=== PATIENT | male | born 1965 | race African-American/Black ===

== ENCOUNTER 2020-11-09 03:48 | Emergency (ER) | payer SELFPAY ==
[2020-11-09 03:59] VITALS: BP 143/90
[2020-11-09] MEDS ORDERED: IBUPROFEN 600 MG TAB PO ONE (04:00)
[2020-11-09] MEDS ORDERED: ONDANSETRON 4 MG ODT TAB PO ONE (04:00)
[2020-11-09] MEDS ORDERED: HYDROcodone/ACETAMINOPHEN 5-325 MG TAB PO ONE (04:00)
--- NOTE | 2020-11-09 04:45 | XRay Report ---
LUMBAR SPINE 3 VIEWS INDICATION / CLINICAL INFORMATION: pain; LOWER BACK PAIN X 2 DAYS. COMPARISON: None available. FINDINGS: VERTEBRAE: No fracture. No significant malalignment. 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 FACET JOINTS:Moderate facet degenerative disease L5-S1 ADDITIONAL FINDINGS: None. IMPRESSION: 1. No significant abnormality. Signer Name: Jean Pollock MD Signed: 11/09/2020 4:41 AM Workstation Name: [id number]
--- NOTE | 2020-11-09 04:48 | Emergency Department Report ---
ED Back Pain/Injury HPI - General Chief Complaint: Back Pain/Injury Stated Complaint: BACK PAIN/PAINFUL URINATION Source: patient Limitations: Language Barrier - History of Present Illness Initial Comments: Patient is a 55-year-old [place] male with no past medical history presents to the ED with complaint of acute onset persistent severe low back pain for the last 24 hours after heavy lifting at work 24 hours ago. Patient states that the pain is worse with any movement. Patient states that his job entails heavy lifting and that 24 hours ago he may have carried more weight at work. Patient denies fall, traumatic injury, nausea and vomiting, dysuria, urine frequency and urgency, hematuria, testicular pain, numbness and tingling or weakness of lower extremities bilaterally or fever and chills or abdominal pain. MD Complaint: back pain (lower back pain), back injury (Heavy lifting injury) -: Sudden, hour(s) (24) Similar Symptoms Previously: No Place: work Radiation: none Severity scale (0 -10): 7 Quality: sharp, aching Consistency: constant Improves With: none Worsens With: none Context: while lifting, turning/twisting Associated Symptoms: denies other symptoms. denies: confusion, weakness, chest pain, numbness, difficulty walking, cough, difficulty urinating, diaphoresis, incontinence, fever/chills, constipation, headaches, abdominal pain, loss of appetite, malaise, nausea/vomiting, rash, seizure, shortness of breath, syncope - Related Data Previous Rx's Medication Instructions Recorded Last Taken Type Baclofen 20 mg PO Q12H PRN #20 tablet 11/09/20 Unknown Rx Naproxen 500 mg PO Q12H PRN #30 tablet 11/09/20 Unknown Rx traMADoL [Ultram] 50 mg PO Q6HR PRN #10 tablet 11/09/20 Unknown Rx Allergies Allergy/AdvReac Type Severity Reaction Status Date / Time No Known Allergies Allergy Unverified 11/09/20 03:57 ED Review of Systems ROS: Stated complaint: BACK PAIN/PAINFUL URINATION Other details as noted in HPI Constitutional: denies: chills, fever Eyes: denies: eye pain, eye discharge, vision change ENT: denies: ear pain, throat pain Respiratory: denies: cough, shortness of breath, wheezing Cardiovascular: denies: chest pain, palpitations Endocrine: no symptoms reported Gastrointestinal: denies: abdominal pain, nausea, vomiting, diarrhea Genitourinary: denies: urgency, dysuria Musculoskeletal: back pain (Low back pain), arthralgia, myalgia. denies: joint swelling Skin: denies: rash, lesions Neurological: denies: headache, weakness, paresthesias Psychiatric: denies: anxiety, depression Hematological/Lymphatic: denies: easy bleeding, easy bruising ED Past Medical Hx - Past Medical History Previous Medical History?: No - Surgical History Past Surgical History?: No - Medications Home Medications: Home Medications Medication Instructions Recorded Confirmed Last Taken Type Baclofen 20 mg PO Q12H PRN #20 tablet 11/09/20 Unknown Rx Naproxen 500 mg PO Q12H PRN #30 tablet 11/09/20 Unknown Rx traMADoL [Ultram] 50 mg PO Q6HR PRN #10 tablet 11/09/20 Unknown Rx ED Physical Exam - General Limitations: Language Barrier General appearance: alert, in no apparent distress - Head Head exam: Present: atraumatic, normocephalic, normal inspection - Eye Eye exam: Present: normal appearance, PERRL, EOMI Pupils: Present: normal accommodation - ENT ENT exam: Present: normal exam, normal orophraynx, mucous membranes moist, TM's normal bilaterally, normal external ear exam - Neck Neck exam: Present: normal inspection, full ROM - Respiratory Respiratory exam: Present: normal lung sounds bilaterally. Absent: respiratory distress, wheezes, rales, rhonchi, chest wall tenderness, accessory muscle use, decreased breath sounds, prolonged expiratory - Cardiovascular Cardiovascular Exam: Present: regular rate, normal rhythm, normal heart sounds. Absent: systolic murmur, diastolic murmur, rubs, gallop - GI/Abdominal GI/Abdominal exam: Present: soft, normal bowel sounds. Absent: tenderness, guarding, rebound, hyperactive bowel sounds, hypoactive bowel sounds, mass - Extremities Exam Extremities exam: Present: normal inspection, full ROM, normal capillary refill - Back Exam Back exam: Present: normal inspection, full ROM, tenderness (Palpable severe lumbosacral paraspinal musculoskeletal tenderness), muscle spasm, paraspinal tenderness. Absent: CVA tenderness (R), CVA tenderness (L), vertebral tenderness, rash noted - Neurological Exam Neurological exam: Present: alert, oriented X3, CN II-XII intact, normal gait, reflexes normal - Psychiatric Psychiatric exam: Present: normal affect, normal mood - Skin Skin exam: Present: warm, dry, intact, normal color. Absent: rash ED Course Vital Signs 11/09/20 03:58 Temperature 98.4 F Pulse Rate 69 Respiratory 16 Rate Blood Pressure 143/90 [Right] O2 Sat by Pulse 97 Oximetry ED Medical Decision Making - Radiology Data Radiology results: report reviewed, image reviewed [facility] [address] [place] [address] XRay Report Signed Patient: CARRIE WILSON MR#: [id number] 85 : 1965 Acct:[id number] Age/Sex: 55 / M ADM Date: 11/09/20 Loc: ED Attending Dr: Ordering Physician: MURTAZA VIEYRA MD Date of Service: 11/09/20 Procedure(s): XR spine lumbosacral 2-3V Accession Number(s): [id number] cc: MURTAZA VIEYRA MD Fluoro Time In Minutes: LUMBAR SPINE 3 VIEWS INDICATION / CLINICAL INFORMATION: pain; LOWER BACK PAIN X 2 DAYS. COMPARISON: None available. FINDINGS: VERTEBRAE: No fracture. No significant malalignment. 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 FACET JOINTS:Moderate facet degenerative disease L5-S1 ADDITIONAL FINDINGS: None. IMPRESSION: 1. No significant abnormality. Signer Name: Jean Pollock MD Signed: 11/09/2020 4:41 AM Workstation Name: [id number] Transcribed By: TL Dictated By: Jean Pollock MD Electronically Authenticated By: Jean Pollock MD Signed Date/Time: 11/09/20440 DD/ 9 TD/TT: - Medical Decision Making This is a 55-year-old [place] male with no past medical history presents to the ED with complaint of acute onset persistent severe low back pain for the last 24 hours after heavy lifting at work 24 hours ago. Patient states that the pain is worse with any movement. Patient states that his job entails heavy lifting and that 24 hours ago he may have carried more weight at work. In the ED, patient is alert and oriented x3 and is not in distress but appears to be in pain. Patient was treated for pain in the ED and L-spine x-ray showed no acute fractures or subluxations of the lumbar spine. On reevaluation, patient's pain is well controlled medications. Patient was discharged home on pain medications muscle relaxants and was advised to follow-up with his primary care physician in 7 to 10 days for reevaluation. Patient was advised return to the ED immediately if symptoms get worse. - Differential Diagnosis Muscle spasm; muscle strain; back injury; Critical care attestation.: If time is entered above; I have spent that time in minutes in the direct care of this critically ill patient, excluding procedure time. ED Disposition Clinical Impression: Spasm of muscle of lower back, Strain of muscle, fascia and tendon of lower back, initial encounter Disposition: HOME / SELF CARE / HOMELESS Is pt being admited?: No Does the pt Need Aspirin: No Condition: Stable Instructions: Muscle Cramps and Spasms, [id number], Muscle Strain, [id number], Low Back Sprain or Strain Rehab-SportsMed, Lumbosacral Strain Additional Instructions: The lumbar spine x-ray shows no acute fractures or subluxations of your low back. Your symptoms are likely due to muscle spasm or muscle strain following the heavy lifting at work. Therefore take pain medication as needed, drink plenty of fluids and follow-up with your primary care physician in 7 to 10 days for reevaluation or return to the ED immediately if symptoms get worse. Prescriptions: Baclofen 20 mg PO Q12H PRN #20 tablet PRN Reason: Muscle Spasm Naproxen 500 mg PO Q12H PRN #30 tablet PRN Reason: Pain , Severe (7-10) traMADoL [Ultram] 50 mg PO Q6HR PRN #10 tablet PRN Reason: Pain Referrals: [facility] [Provider Group] - 7-10 days Forms: Work/School Release Form(ED) Time of Disposition: 04:52 Print Language: NEPALI
== END 2020-11-09 05:18 | disposition home or self-care (01) ==
LOC: ED 03:48
DX: S39.012A Strain of muscle, fascia and tendon of lower back, initial encounter (principal); M62.830 Muscle spasm of back; Z79.899 Other long term (current) drug therapy; X50.0XXA Overexertion from strenuous movement or load, initial encounter; Y93.89 Activity, other specified; Y92.89 Other specified places as the place of occurrence of the external cause; Y99.8 Other external cause status
CPT/HCPCS: 72100; Q0162